=== PATIENT | female | born 1945 | race Caucasian/White ===

== ENCOUNTER → 2023-06-28 08:22 | Outpatient (REF) | payer OTHER, SELFPAY | LOC: HWWDC 08:22 | PROVIDERS: ATTENDING PHYSICIAN Physician Assistant Medical | DX: Z12.31 Encounter for screening mammogram for malignant neoplasm of breast (principal) | CPT/HCPCS: 77063; 77067 ==

== ENCOUNTER → 2024-07-06 10:26 | Outpatient (REF) | payer OTHER, SELFPAY | LOC: HWWDC 10:26 | PROVIDERS: ATTENDING PHYSICIAN Physician Assistant Medical | DX: Z12.31 Encounter for screening mammogram for malignant neoplasm of breast (principal) | CPT/HCPCS: 77063; 77067 ==